=== PATIENT | male | born 1970 | race Caucasian/White ===

== ENCOUNTER 2017-05-30 09:27 | Day surgery (SDC) | payer OTHER ==
[2017-05-30] MEDS ORDERED: Quelicin Fliptop 200 MG/10 ML IV ONE (09:28)
[2017-05-30] MEDS ORDERED: TORAdol 30 mg Injection IV ONE (09:28)
[2017-05-30] MEDS ORDERED: SUBLIMAZE 250 MCG/5 ML IV ONE (09:28)
[2017-05-30] MEDS ORDERED: Versed 2 MG/2 ML Injection IV ONE (09:28)
[2017-05-30] MEDS ORDERED: MARCAINE 0.5%-EPI 1:200,000 VL IJ ONE (09:28)
[2017-05-30] MEDS ORDERED: BRIDION 200MG/2ML IV ONE (09:28)
[2017-05-30] MEDS ORDERED: DIPRIVAN 200 MG/20 ML IV ONE (09:28)
[2017-05-30] MEDS ORDERED: Zemuron 100 MG/10 ML IV ONE (09:28)
[2017-05-30] MEDS ORDERED: DILAUDID 2 MG INJECTION IV ONE (09:28)
[2017-05-30] MEDS ORDERED: Lactated Ringers 1,000 ML IV ONE ×2 (10:11→14:46)
[2017-05-30 10:27] LABS: Mean Cell Volume 78.3 fl (78-100); Mean Corpuscular Hemoglobin 24.6 pg (26-32); Mean Platelet Volume 9.8 fl (6-9.5); Platelet Count 311 K/mm3 (150-450); Red Cell Distribution Width 16.7 % (11.5-14.0); White Blood Count 5.1 K/mm3 (4.0-10.5)
[2017-05-30] MEDS ORDERED: CEFAZOLIN 2 GM-D5W BAG** 2 GM/50 ML ML IV SCH (10:30)
[2017-05-30] MEDS ORDERED: Lactated Ringers 1,000 ML IV SCH (10:30)
[2017-05-30 11:03] LABS: ALBUMIN 3.5 g/dL (3.4-5.0); ALKALINE PHOSPHATASE 69 U/L (46-116); BLOOD UREA NITROGEN 12 mg/dL (9-20); CHLORIDE 103 mEq/L (98-107); Carbon Dioxide 24.7 mEq/L (21-32); Glucose 120 MG/DL (70-110); Potassium 3.8 mEq/L (3.5-5.1); SGOT/AST 41 U/L (15-37); SGPT/ALT 57 U/L (12-78); SODIUM 139 mEq/L (136-145); Total Protein 8.3 gm/dL (6.4-8.2)
[2017-05-30] MEDS ORDERED: Zofran 4 MG/2 ML VIAL IV PRN (14:07)
[2017-05-30 14:16] VITALS: O2SAT 95
[2017-05-30] MEDS ORDERED: Sensorcaine 0.25% 10 ML ONE (14:46)
[2017-05-30] MEDS ORDERED: KEFZOL 1 GM ONE (14:46)
[2017-05-30 14:57] VITALS: BP 143/74; PULSE 82
--- NOTE | 2017-05-30 15:42 | OP ---
SURGERY DATE/TIME: 05/30/2017 1223 PREOPERATIVE DIAGNOSIS: Symptomatic umbilical hernia. POSTOPERATIVE DIAGNOSIS: Symptomatic umbilical hernia. PROCEDURE: Primary umbilical herniorrhaphy. SURGEON: Sukhwinder Dee M.D. ANESTHESIA: General. COMPLICATIONS: None. CONDITION: Stable. INDICATION: The patient requiring umbilical herniorrhaphy. DESCRIPTION OF PROCEDURE: Taken to surgery. General anesthetic. Routine prep and drape. Transverse intra-umbilical incision. A 3 cm sac was removed. There was 1 x 1 cm. It was approximated with 3 inverting sutures 0 Prolene placed and tied down. 0 Vicryl and figure-of-8 was placed on top of this. Skin closed with 4-0 Vicryl and Steri-Strips. The patient tolerated the procedure satisfactorily.
== END 2017-05-30 14:50 | disposition home or self-care (01) ==
LOC: SDC 09:27
PROVIDERS: ATTEND Surgery
PROC: 0WQF0ZZ Repair Abdominal Wall, Open Approach (ICD-10-PCS; principal; 2017-05-30)
DX: K42.9 Umbilical hernia without obstruction or gangrene (principal)
CPT/HCPCS: 00830; 36415; 64488; 76937; 76942; 80053; 80307; 85027; J0330; J0690; J1170; J1885; J2250; J2405; J2704; J3010; L0625